=== PATIENT | female | born 1965 | race Caucasian/White ===

== ENCOUNTER 2017-06-21 11:19 | Inpatient (IN) | payer OTHER ==
--- NOTE | 2017-06-21 12:23 | PDOC ---
History of Present Illness - General Chief Complaint: Diarrhea Stated Complaint: DIARRHEA Time Seen by Provider: 06/21/17 11:33 History Source: Patient Exam Limitations: No Limitations - History of Present Illness Initial Comments: 06/21/17 12:23 52F with pmh of rectal cancer stage 4 s/p mass resection and ileostomy on IV and PO chemotherapy presents with diarrhea every 25 minutes for the past 2 days. Stools are normally formed, not liquid or bloody, and according to patient seem to correlate with food ingested suggestive of very fast transit. Admits to episodes of vomiting preceding the diarrhea. Past History - Past Medical History Allergies/Adverse Reactions: Allergies Allergy/AdvReac Type Severity Reaction Status Date / Time No Known Allergies Allergy Verified 06/21/17 11:23 Home Medications: Ambulatory Orders Capecitabine 1,000 mg PO BID 06/21/17 Gabapentin 100 mg PO TID 06/21/17 Ondansetron [Zofran -] 8 mg PO Q8H PRN 06/21/17 Ondansetron [Zofran -] 8 mg SL Q6H PRN 06/21/17 Prochlorperazine 10 mg PO Q6H PRN 06/21/17 Anemia: No Asthma: No Cancer: Yes (rectal 10/14/2016 stage 4) Cardiac Disorders: No CVA: No COPD: No CHF: No Dementia: No Diabetes: No GI Disorders: No Disorders: No HTN: No Hypercholesterolemia: Yes Liver Disease: No Seizures: No Thyroid Disease: No - Surgical History Abdominal Surgery: No Appendectomy: No Cardiac Surgery: No Cholecystectomy: No Lung Surgery: No Neurologic Surgery: No Orthopedic Surgery: Yes - Suicide/Smoking/Psychosocial Hx Smoking Status: Yes Smoking History: Never smoked Have you smoked in the past 12 months: Yes Number of Cigarettes Smoked Daily: 0 If you are a former smoker, when did you quit?: 2 years ago Information on smoking cessation initiated: No 'Breaking Loose' booklet given: 07/28/12 Hx Alcohol Use: No Drug/Substance Use Hx: No Substance Use Type: None Hx Substance Use Treatment: No *Physical Exam - Vital Signs Last Vital Signs Temp Pulse Resp BP Pulse Ox 98.4 F 92 H 18 130/82 99 06/21/17 11:20 06/21/17 11:20 06/21/17 11:20 06/21/17 11:20 06/21/17 11:20 - Physical Exam General Appearance: Yes: Nourished, Appropriately Dressed, Mild Distress HEENT: positive: EOMI, FREDY, Normal ENT Inspection Respiratory/Chest: positive: Lungs Clear, Normal Breath Sounds. negative: Chest Tender, Respiratory Distress Cardiovascular: positive: Regular Rhythm, Regular Rate, S1, S2 Gastrointestinal/Abdominal: positive: Normal Bowel Sounds, Flat, Soft. negative : Tender Musculoskeletal: positive: Normal Inspection. negative: CVA Tenderness Extremity: positive: Normal Capillary Refill, Normal Inspection, Normal Range of Motion Integumentary: positive: Normal Color, Dry, Warm Neurologic: positive: Fully Oriented, Alert, Normal Mood/Affect, Normal Response , Motor Strength 07/05 ED Treatment Course - LABORATORY CBC & Chemistry Diagram: 06/21/17 12:40 06/21/17 12:40 Medical Decision Making - Medical Decision Making 06/21/17 13:07 Grade 3 NCI CTCAE diarrhea grading: Increase of 7 or more stools/day over baseline. Will get labs and call Dr. Dempsey. *DC/Admit/Observation/Transfer Diagnosis at time of Disposition: Chemotherapy induced diarrhea - Discharge Dispostion Admit: Yes - Referrals Referrals: Yaniv Dempsey MD [Primary Care Provider] - - Patient Instructions - Post Discharge Activity
--- NOTE | 2017-06-21 12:25 | PDOC ---
Attending Attestation - Resident Resident Name: AnnCr - ED Attending Attestation I have performed the following: I have examined & evaluated the patient, The case was reviewed & discussed with the resident, I agree w/resident's findings & plan, Exceptions are as noted - HPI HPI: 06/21/17 12:24 "The patient is a 52 year old female with a significant PMH of stage IV rectal CA (on radiation and chemo) and hyperlipidemia who presents to the emergency department with 2 days of acute on chronic diarrhea and 1 day of vomiting. The patient reports 2 days of diarrhea approximately every 25 minutes, stating she had about 25 episodes yesterday and today. She reports she has about 8 BMs a day at baseline. She describes her stool as brown and non-watery. The patient denies hematochezia. Denies abdominal pain. Denies F/C. Denies CP/SOB. Allergies: NKA PCP: Dr. Dempsey " - Physicial Exam PE: 06/21/17 12:25 "GENERAL: Awake, alert, and fully oriented, in no acute distress. HEAD: No signs of trauma EYES: PERRLA, EOMI, sclera anicteric, conjunctiva clear ENT: Auricles normal inspection, hearing grossly normal, nares patent, oropharynx clear without exudates. Moist mucosa NECK: Nontender, no stepoffs, Normal ROM, supple, no lymphadenopathy, JVD, or masses LUNGS: Breath sounds equal, clear to auscultation bilaterally. No wheezes, and no crackles HEART: Regular rate and rhythm, normal S1 and S2, no murmurs, rubs or gallops ABDOMEN: Soft, nontender, normoactive bowel sounds. No guarding, no rebound. No masses EXTREMITIES: Normal range of motion, no edema. No clubbing or cyanosis. No cords , erythema, or tenderness NEUROLOGICAL: Cranial nerves II through XII intact. 5/5 strength and sensation in all extremities, Normal speech, normal gait, normal cerebellar function SKIN: Warm, Dry, normal turgor, no rashes or lesions noted. " - Medical Decision Making 06/21/17 12:25 52 F with likely chemotherapy-related diarrhea. Pt with no fevers. No abdominal tenderness. - Labs - Stool cultures - IVF - Likely admission
[2017-06-21 12:51] LABS: BASO % 0.4 % (0-2.0); EOS % 1.8 % (0-4.5); HEMOGLOBIN 10.1 GM/dL (10.7-15.3); MCH 24.8 pg (25.7-33.7); MCHC 32.6 g/dl (32.0-36.0); MEAN CELL VOLUME 76.1 fl (80-96); MEAN PLT VOLUME 7.7 fl (7.5-11.1); MONO % 15.3 % (3.8-10.2); NEUT % 57.5 % (42.8-82.8); PLATELET COUNT 79 K/MM3 (134-434); RBC 4.08 M/mm3 (3.60-5.2); RDW 16.5 % (11.6-15.6); WHITE BLOOD COUNT 3.4 K/mm3 (4.0-10.0)
[2017-06-21 13:19] LABS: ALBUMIN 3.3 g/dl (3.4-5.0); ANION GAP 8 (8-16); BILIRUBIN,TOTAL 0.3 mg/dL (0.2-1.0); BLOOD UREA NITROGEN 8 mg/dL (7-18); CALCIUM 8.6 mg/dL (8.5-10.1); CHLORIDE 109 mmol/L (98-107); CO2 27 mmol/L (21-32); CREATININE 0.4 mg/dL (0.55-1.02); GLUCOSE,RANDOM 110 mg/dL (74-106); POTASSIUM 3.8 mmol/L (3.5-5.1); SGOT/AST 40 U/L (15-37); SGPT/ALT 47 U/L (12-78); SODIUM 144 mmol/L (136-145); TOT PROT 6.3 g/dl (6.4-8.2)
[2017-06-21 13:20] LABS: ALK PHOS 98 U/L (45-117)
[2017-06-21] MEDS ORDERED: SODIUM CHLORIDE 1,000 ML IV STA (14:06)
[2017-06-21] MEDS ORDERED: ONDANSETRON 4 MG/2 ML VIAL IVPB PRN (14:07)
[2017-06-21] MEDS ORDERED: FAMOTIDINE 20 MG/50 ML IVPB 20 MG/50 ML MG IVPB ONE ×2 (14:15→14:22)
--- NOTE | 2017-06-21 17:37 | HP ---
Admitting History and Physical - Primary Care Physician PCP: Yaniv Dempsey - Admission Chief Complaint: FREQUENT STOOLS/WEAKNESS History of Present Illness: HISTORY OF RECTAL COLION CANCER, S/P RADIATION/CHEMOTHERAPY WITH SURGICAL REMOVAL.NOW ON PO CHEMOTHERAPY C/O FREQUENT STOOLS OVER THE PAST 2 DAYS NON- BLOODY. NO FEVER NO CHILLS, BUT C/O WEAKNESS. History Source: Patient - Past Medical History ...LMP: 06/07/11 Heme/Onc: Yes: Cancer - Smoking History Smoking history: Never smoked Have you smoked in the past 12 months: Yes Aproximately how many cigarettes per day: 0 If you are a former smoker, when did you quit?: 2 years ago - Alcohol/Substance Use Hx Alcohol Use: No Home Medications - Allergies Allergies/Adverse Reactions: Allergies Allergy/AdvReac Type Severity Reaction Status Date / Time No Known Allergies Allergy Verified 06/21/17 11:23 - Home Medications Home Medications: Ambulatory Orders Capecitabine 1,000 mg PO BID 06/21/17 Gabapentin 100 mg PO TID 06/21/17 Ondansetron [Zofran -] 8 mg PO Q8H PRN 06/21/17 Ondansetron [Zofran -] 8 mg SL Q6H PRN 06/21/17 Prochlorperazine 10 mg PO Q6H PRN 06/21/17 Review of Systems - Review of Systems Constitutional: reports: Weakness Eyes: reports: No Symptoms HENT: reports: No Symptoms Neck: reports: No Symptoms Cardiovascular: reports: No Symptoms Respiratory: reports: No Symptoms Gastrointestinal: reports: Diarrhea Genitourinary: reports: No Symptoms Musculoskeletal: reports: No Symptoms Integumentary: reports: No Symptoms Neurological: reports: No Symptoms Endocrine: reports: No Symptoms Hematology/Lymphatic: reports: No Symptoms Psychiatric: reports: No Symptoms Physical Examination Vital Signs: Vital Signs Temperature 98.4 F 06/21/17 11:20 Pulse Rate 88 06/21/17 15:39 Respiratory Rate 18 06/21/17 15:39 Blood Pressure 138/82 06/21/17 15:39 O2 Sat by Pulse Oximetry (%) 100 06/21/17 15:39 Constitutional: Yes: Mild Distress Eyes: Yes: WNL HENT: Yes: WNL Neck: Yes: WNL Cardiovascular: Yes: WNL Respiratory: Yes: WNL Gastrointestinal: Yes: WNL Renal/: Yes: WNL Musculoskeletal: Yes: WNL Extremities: Yes: WNL Edema: No Peripheral Pulses WNL: Yes Integumentary: Yes: WNL Wound/Incision: Yes: Clean/Dry Neurological: Yes: WNL ...Motor Strength: WNL Psychiatric: Yes: WNL Labs: CBC, BMP 06/21/17 12:40 06/21/17 12:40 Problem List - Problems (1) Rectal adenocarcinoma Code(s): C20 - MALIGNANT NEOPLASM OF RECTUM (2) Chemotherapy induced diarrhea Code(s): K52.1 - TOXIC GASTROENTERITIS AND COLITIS; T45.1X5A - ADVERSE EFFECT OF ANTINEOPLASTIC AND IMMUNOSUP DRUGS, INIT Assessment/Plan CHECK STOOLS FOR CULTURES AND CDIFF ID CONSULT GI EVAL IVF ONCOLOGY EVAL
[2017-06-21 18:47] VITALS: BMI 30.2
[2017-06-21] MEDS ORDERED: ACETAMINOPHEN 325 MG TABLET (FP) PO PRN (21:03)
[2017-06-21] MEDS ORDERED: SODIUM CHLORIDE 1,000 ML IV SCH (21:15)
[2017-06-21] MEDS: SODIUM CHLORIDE 0.45% 1,000 ML IV SCH (22:01)
--- NOTE | 2017-06-21 22:23 | EKG ---
Test Reason : Blood Pressure : / mmHG Vent. Rate : 082 BPM Atrial Rate : 082 BPM P-R Int : 156 ms QRS Dur : 078 ms QT Int : 388 ms P-R-T Axes : 020 008 015 degrees QTc Int : 453 ms NORMAL SINUS RHYTHM NORMAL ECG WHEN COMPARED WITH ECG OF 03-JUN-2014 12:43, NO SIGNIFICANT CHANGE WAS FOUND Confirmed by DAYNE JADE MD ([id number]) on 06/21/2017 10:22:30 PM Referred By: Confirmed By:DAYNE JADE MD
[2017-06-22 07:28] LABS: HEMATOCRIT 30.3 % (32.4-45.2); MCH 25.1 pg (25.7-33.7); MCHC 32.8 g/dl (32.0-36.0); MEAN CELL VOLUME 76.4 fl (80-96); MEAN PLT VOLUME 8.3 fl (7.5-11.1); PLATELET COUNT 73 K/MM3 (134-434); RBC 3.97 M/mm3 (3.60-5.2); RDW 16.8 % (11.6-15.6); WHITE BLOOD COUNT 2.7 K/mm3 (4.0-10.0)
[2017-06-22 07:57] LABS: ALBUMIN 3.2 g/dl (3.4-5.0); ANION GAP 8 (8-16); BILIRUBIN,TOTAL 0.3 mg/dL (0.2-1.0); BLOOD UREA NITROGEN 5 mg/dL (7-18); CALCIUM 8.7 mg/dL (8.5-10.1); CHLORIDE 107 mmol/L (98-107); CO2 27 mmol/L (21-32); CREATININE 0.4 mg/dL (0.55-1.02); GLUCOSE,RANDOM 90 mg/dL (74-106); MAGNESIUM 2.1 mg/dL (1.8-2.4); SGOT/AST 38 U/L (15-37); SGPT/ALT 41 U/L (12-78); SODIUM 142 mmol/L (136-145)
[2017-06-22 07:58] LABS: ALK PHOS 98 U/L (45-117); TOT PROT 6.2 g/dl (6.4-8.2)
[2017-06-22 08:53] LABS: PLATELET ESTIMATE DECREASED; TEAR DROP CELLS 1+
[2017-06-22] MEDS: AMINO ACIDS/PROTEIN HYDROLYS 30 ML LIQUID.PKT PO SCH ×3 (10:03→17:53)
--- NOTE | 2017-06-22 12:19 | PN ---
Progress Note, Physician Chief Complaint: POOR APPETITE WEAK NAUSEA - Current Medication List Current Medications: Active Medications Acetaminophen (Tylenol -) 650 mg PO Q6H PRN PRN Reason: PAIN LEVEL 6-10 Last Admin: 06/21/17 21:15 Dose: 650 mg Amino Acids (Prosource No Carb Liquid Pkt) 30 ml PO BID@0800,1730 [facility] Last Admin: 06/22/17 10:04 Dose: Not Given Sodium Chloride (1/2 Normal Saline) 1,000 mls @ 42 mls/hr IV ASDIR [facility] Last Admin: 06/21/17 22:01 Dose: 42 mls/hr Ondansetron HCl (Zofran Injection) 8 mg IVPB Q6H PRN PRN Reason: NAUSEA - Objective Vital Signs: Vital Signs Temperature 98.0 F 06/22/17 05:43 Pulse Rate 80 06/22/17 05:43 Respiratory Rate 20 06/22/17 05:43 Blood Pressure 124/75 06/22/17 05:43 O2 Sat by Pulse Oximetry (%) 98 06/21/17 23:00 Constitutional: Yes: Mild Distress Eyes: Yes: WNL HENT: Yes: WNL Neck: Yes: WNL Cardiovascular: Yes: WNL Respiratory: Yes: WNL Gastrointestinal: Yes: Other Genitourinary: Yes: WNL Musculoskeletal: Yes: Muscle Weakness Extremities: Yes: WNL Edema: No Peripheral Pulses WNL: Yes Integumentary: Yes: WNL Wound/Incision: Yes: Clean/Dry Neurological: Yes: Tingling ...Motor Strength: WNL Psychiatric: Yes: WNL Labs: CBC, BMP 06/22/17 06:44 06/22/17 06:44 Problem List - Problems (1) Rectal adenocarcinoma Code(s): C20 - MALIGNANT NEOPLASM OF RECTUM (2) Chemotherapy induced diarrhea Code(s): K52.1 - TOXIC GASTROENTERITIS AND COLITIS; T45.1X5A - ADVERSE EFFECT OF ANTINEOPLASTIC AND IMMUNOSUP DRUGS, INIT Assessment/Plan CHECK STOOLS FOR CULTURES AND CDIFF ID CONSULT GI EVAL IVF ONCOLOGY EVAL
[2017-06-22] MEDS ORDERED: diazePAM 2 MG TABLET PO PRN (12:24)
[2017-06-22] MEDS ORDERED: LACTOBACILLUS ACIDOPHILUS 1 TABLET PO SCH (12:30)
--- NOTE | 2017-06-22 14:26 | CONSULT ---
Consult - text type - Consultation Consultation Note: 52F with pmh of rectal cancer diagnosed 10/2013 s/p chemo/RT , resection and ileostomy 02/16 and reversal of ileostomy 6 weks later, On XELOX C2 D10 presents with diarrhea every 25 minutes for the past 2 days. Frequent BMs. nl consistency. Baseline BMs after surgery 10 times/day but cramping abdominal pain and frequent BMS over last few days Increased BMs after eating Also with nausea Allergies/Adverse Reactions: Allergies Allergy/AdvReac Type Severity Reaction Status Date / Time No Known Allergies Allergy Verified 06/21/17 11:23 Home Medications: Ambulatory Orders Capecitabine 1,000 mg PO BID 06/21/17 Gabapentin 100 mg PO TID 06/21/17 Ondansetron [Zofran -] 8 mg PO Q8H PRN 06/21/17 Ondansetron [Zofran -] 8 mg SL Q6H PRN 06/21/17 Prochlorperazine 10 mg PO Q6H PRN 06/21/17 PMH Cancer: Yes (rectal 10/14/2016 stage 4) Hypercholesterolemia: Yes - Surgical History Orthopedic Surgery: Yes - Suicide/Smoking/Psychosocial Hx Smoking Status: Yes Smoking History: Never smoked - Vital Signs Last Vital Signs Temp Pulse Resp BP Pulse Ox 98.4 F 92 H 18 130/82 99 06/21/17 11:20 06/21/17 11:20 06/21/17 11:20 06/21/17 11:20 06/21/17 11:20 Cor: RSR, No murmurs, No gallops Lungs: Clear to P&A Abd: Soft, Normal bowel sounds, No organomegaly Ext:No significant edema Abnormal Lab Results 06/21/17 06/22/17 06/22/17 12:40 06:44 06:44 WBC 2.7 L Hgb 10.0 L Hct 30.3 L MCV 76.4 L MCH 25.1 L RDW 16.8 H Plt Count 73 L Chloride 109 H BUN 5 L Creatinine 0.4 L 0.4 L Random Glucose 110 H AST 40 H 38 H Total Protein 6.3 L 6.2 L Albumin 3.3 L 3.2 L Home Medication List Medication Instructions Recorded Confirmed Type Capecitabine 1,000 mg PO BID 06/21/17 06/21/17 History Gabapentin 100 mg PO TID 06/21/17 06/21/17 History Ondansetron [Zofran -] 8 mg PO Q8H PRN 06/21/17 06/21/17 History Ondansetron [Zofran -] 8 mg SL Q6H PRN 06/21/17 06/21/17 History Prochlorperazine 10 mg PO Q6H PRN 06/21/17 06/21/17 History Active Medications Generic Name Dose Route Start Last Admin Trade Name Jeanne PRN Reason Stop Dose Admin Acetaminophen 650 mg 06/21/17 21:03 06/21/17 21:15 Tylenol - PO 650 mg Q6H PRN Administration PAIN LEVEL 6-10 Amino Acids 30 ml 06/21/17 17:30 06/22/17 10:04 Prosource No Carb Liquid Pkt PO Not Given BID@0800,1730 ANU Camphor/Menthol 1 applic 06/22/17 12:30 Sarna Anti-Itch - TP DAILY ANU Diazepam 2 mg 06/22/17 12:24 Valium - PO HS PRN ANXIETY Sodium Chloride 1,000 mls @ 42 mls/hr 06/21/17 21:30 06/21/17 22:01 1/2 Normal Saline IV 42 mls/hr ASDIR ANU Administration Ondansetron HCl 8 mg 06/22/17 14:30 Zofran Injection IVPB Q12H PRN NAUSEA A/P 52 y/o patient C2 D10 XELOX for rectal cancer. Being treated at [facility] h/o chemo/RT and then surgery followed by ileostomy reversal Getting adjuvant XELOX Patient comes in for increased frequency of BMS from baseline --reports small BMS upto 15-20 /day. Basline around 10 since surgery C.diff neg. will start immodium/BRAT diet/fluids Zofran fo nausea Hold Xeloda
[2017-06-22] MEDS ORDERED: ONDANSETRON 4 MG/2 ML VIAL IVPB PRN (14:30)
[2017-06-22] MEDS ORDERED: PORTA CATH FLUSH 10 ML IVPUSH ONE (15:43)
[2017-06-22] MEDS ORDERED: LOPERAMIDE HCL 2 MG CAPSULE PO PRN (15:50)
--- NOTE | 2017-06-22 18:06 | PN ---
Progress Note (short form) - Note Progress Note: ID Consult dictated Diarrhea R/O enteric pathogens ? chemo-induced Pancytopenia Hx colorectal ca Await stool studies
[2017-06-22] MEDS: SODIUM CHLORIDE 0.45% 1,000 ML IV SCH (22:56)
[2017-06-23 07:29] LABS: HEMATOCRIT 30.3 % (32.4-45.2); HEMOGLOBIN 9.9 GM/dL (10.7-15.3); MCH 24.8 pg (25.7-33.7); MCHC 32.7 g/dl (32.0-36.0); MEAN CELL VOLUME 75.9 fl (80-96); MEAN PLT VOLUME 8.8 fl (7.5-11.1); PLATELET COUNT 78 K/MM3 (134-434); RDW 16.9 % (11.6-15.6); WHITE BLOOD COUNT 3.3 K/mm3 (4.0-10.0)
[2017-06-23 07:48] LABS: ANION GAP 6 (8-16); BLOOD UREA NITROGEN 10 mg/dL (7-18); CALCIUM 8.4 mg/dL (8.5-10.1); CHLORIDE 107 mmol/L (98-107); CO2 28 mmol/L (21-32); CREATININE 0.4 mg/dL (0.55-1.02); GLUCOSE,RANDOM 87 mg/dL (74-106); POTASSIUM 3.8 mmol/L (3.5-5.1); SODIUM 141 mmol/L (136-145)
[2017-06-23 07:49] LABS: PHOSPHOROUS 4.1 mg/dL (2.5-4.9)
[2017-06-23] MEDS: AMINO ACIDS/PROTEIN HYDROLYS 30 ML LIQUID.PKT PO SCH ×2 (08:26→17:43)
--- NOTE | 2017-06-23 09:12 | CONS ---
INFECTIOUS DISEASE CONSULTATION DATE OF CONSULTATION: DATE OF DICTATION: 06/23/2017 The patient is a 52-year-old female with a history of stage IV colorectal cancer, status post resection with ileostomy and reversal, status post chemotherapy and radiation therapy, evaluated for diarrhea. The patient reports receiving both oral and IV chemotherapy. Her last dose of IV chemotherapy was approximately 10 days ago. For the past 2 days, she has had profuse diarrhea. She reports having 8 to 10 bowel movements a day. She normally has loose bowel movements. However, it has gotten markedly worse over the last 2 days. She has been unable to eat, as she develops profuse diarrhea after ingesting any food. She denies any rectal bleeding. No associated fever or chills. She does have associated crampy abdominal pain. The patient lives at home. She denies any ill contacts. She has not eaten food from outside the house. She has had no recent consumption of krunal lettuce (recent E coli outbreak). No recent travel, antibiotic therapy, or vomiting. PAST MEDICAL HISTORY: Positive for stage IV colorectal cancer. She is status post ileostomy with reversal in January 2017. Past medical history also includes hyperlipidemia. ALLERGIES: No known allergies. MEDICATIONS: Gabapentin, Zofran, Xelox. SOCIAL HISTORY: Lives at home with family members. Nonsmoker. Nondrinker. LABORATORY DATA: White count 2.7, neutrophils 62, lymphocytes 30, monocytes 4, hematocrit 30.3, platelet count 73. BUN 5, creatinine 0.4. Blood cultures negative. Stool studies negative. PHYSICAL EXAMINATION: General: She is awake and alert. She is not acutely toxic appearing, weak appearing. Vital signs: Temperature 97.8, blood pressure 105/70, pulse 85 and regular, respirations 20 per minute. Eyes: Sclerae are anicteric. Heart: Heart sounds S1, S2. Lungs: Clear. Abdomen: Soft. No tenderness elicited. No mass, rebound or rigidity. Healed surgical scar right lower abdomen. Extremities: Negative for edema. IMPRESSION: 1. Diarrhea. Rule out enteric pathogens versus chemotherapy-induced diarrhea. 2. Dehydration. 3. Pancytopenia. 4. Stage IV colorectal cancer. Continue IV fluid hydration. Await stool studies. Will observe off antibiotic therapy. Case discussed with family members present at the time of the examination. Thank you for the kind referral. STEPHANIE MALDONADO M.D. EDUARD/[id number]
--- NOTE | 2017-06-23 13:46 | PN ---
Progress Note, Physician History of Present Illness: Awake, alert Feeling better 3 loose, non-bloody stools reported No c/o abdominal pain No fever/ chills - Current Medication List Current Medications: Active Medications Acetaminophen (Tylenol -) 650 mg PO Q6H PRN PRN Reason: PAIN LEVEL 6-10 Last Admin: 06/21/17 21:15 Dose: 650 mg Amino Acids (Prosource No Carb Liquid Pkt) 30 ml PO BID@0800,1730 [facility] Last Admin: 06/23/17 08:26 Dose: 30 ml Camphor/Menthol (Sarna Anti-Itch -) 1 applic TP DAILY [facility] Diazepam (Valium -) 2 mg PO HS PRN PRN Reason: ANXIETY Last Admin: 06/22/17 22:57 Dose: 2 mg Sodium Chloride (1/2 Normal Saline) 1,000 mls @ 42 mls/hr IV ASDIR ANU Last Admin: 06/22/17 22:56 Dose: 42 mls/hr Loperamide HCl (Imodium -) 2 mg PO Q6H PRN PRN Reason: DIARRHEA Last Admin: 06/22/17 17:52 Dose: 2 mg Ondansetron HCl (Zofran Injection) 8 mg IVPB Q12H PRN PRN Reason: NAUSEA - Objective Vital Signs: Vital Signs Temperature 97.9 F 06/23/17 13:24 Pulse Rate 83 06/23/17 13:24 Respiratory Rate 18 06/23/17 13:24 Blood Pressure 123/71 06/23/17 13:24 O2 Sat by Pulse Oximetry (%) 96 06/22/17 21:00 Constitutional: Yes: No Distress Eyes: Yes: Conjunctiva Clear Cardiovascular: Yes: Regular Rate and Rhythm, S1, S2 Respiratory: Yes: CTA Bilaterally Gastrointestinal: Yes: Normal Bowel Sounds, Soft. No: Tenderness Labs: CBC, BMP 06/23/17 06:40 06/23/17 06:40 Assessment/Plan Diarrhea ? chemo-induced R/O enteric pathogens Pancytopenia Stage IV colorectal ca Await stool studies Observe off antibiotics
[2017-06-23] MEDS: MENTHOL/CAMPHOR 1 APPLIC BTL TP SCH (17:42)
--- NOTE | 2017-06-23 17:46 | CON.GI ---
Consult Consult Specialty:: GI Referred by:: Dr Dempsey - History of Present Illness History of Present Illness: 52 y/o F with metastatic rectal cancer was admitted because of severe diarrhea associated with weakness and myalgia. Today feels better. Diarrhea improved. - Past Medical History ...LMP: 06/07/11 ...: No - Alcohol/Substance Use Hx Alcohol Use: No - Smoking History Smoking history: Never smoked Have you smoked in the past 12 months: Yes Aproximately how many cigarettes per day: 0 If you are a former smoker, when did you quit?: 2 years ago Home Medications - Allergies Allergies/Adverse Reactions: Allergies Allergy/AdvReac Type Severity Reaction Status Date / Time No Known Allergies Allergy Verified 06/21/17 11:23 - Home Medications Home Medications: Ambulatory Orders Capecitabine 1,000 mg PO BID 06/21/17 Gabapentin 100 mg PO TID 06/21/17 Ondansetron [Zofran -] 8 mg PO Q8H PRN 06/21/17 Ondansetron [Zofran -] 8 mg SL Q6H PRN 06/21/17 Prochlorperazine 10 mg PO Q6H PRN 06/21/17 Physical Exam-GI Vital Signs: Vital Signs Temperature 97.9 F 06/23/17 13:24 Pulse Rate 83 06/23/17 13:24 Respiratory Rate 18 06/23/17 13:24 Blood Pressure 123/71 06/23/17 13:24 O2 Sat by Pulse Oximetry (%) 97 06/23/17 09:00 Constitutional: Yes: Well Nourished Eyes: Yes: Conjunctiva Clear HENT: Yes: Atraumatic Neck: Yes: Supple Cardiovascular: Yes: Regular Rate and Rhythm Respiratory: Yes: CTA Bilaterally ...Palpate: Yes: Soft. No: Firm/Rigid, Guarding, Hepatomegaly, Mass, Pulsatile Mass, Splenomegaly, Tenderness Labs: CBC, BMP 06/23/17 06:40 06/23/17 06:40 Problem List - Problems (1) Diarrhea Assessment/Plan: stool studies R> low fiber lactose free will start on Megestrol, Folic acid and Vit b complex for poor appetite Code(s): R19.7 - DIARRHEA, UNSPECIFIED
--- NOTE | 2017-06-23 18:16 | PN ---
Progress Note, Physician Chief Complaint: Diarrhea, nausea, vomiting Stage 4 rectal Ca History of Present Illness: feeling much better NAD, in bed Appetite improved Seen by ID, Oncology and GI Stool negative for Cdiff-culture and O&P preliminary negative Xeloda on hold, Sees Dr Nely Louis at [facility] at Self ambulatory Symptoms likely 2/2 to chemo - Current Medication List Current Medications: Active Medications Acetaminophen (Tylenol -) 650 mg PO Q6H PRN PRN Reason: PAIN LEVEL 6-10 Last Admin: 06/21/17 21:15 Dose: 650 mg Amino Acids (Prosource No Carb Liquid Pkt) 30 ml PO BID@0800,1730 [facility] Last Admin: 06/23/17 17:43 Dose: 30 ml Camphor/Menthol (Sarna Anti-Itch -) 1 applic TP DAILY [facility] Last Admin: 06/23/17 17:42 Dose: Not Given Diazepam (Valium -) 2 mg PO HS PRN PRN Reason: ANXIETY Last Admin: 06/22/17 22:57 Dose: 2 mg Sodium Chloride (1/2 Normal Saline) 1,000 mls @ 42 mls/hr IV ASDIR ANU Last Admin: 06/22/17 22:56 Dose: 42 mls/hr Loperamide HCl (Imodium -) 2 mg PO Q6H PRN PRN Reason: DIARRHEA Last Admin: 06/22/17 17:52 Dose: 2 mg Ondansetron HCl (Zofran Injection) 8 mg IVPB Q12H PRN PRN Reason: NAUSEA - Objective Vital Signs: Vital Signs Temperature 97.9 F 06/23/17 13:24 Pulse Rate 83 06/23/17 13:24 Respiratory Rate 18 06/23/17 13:24 Blood Pressure 123/71 06/23/17 13:24 O2 Sat by Pulse Oximetry (%) 97 06/23/17 09:00 Constitutional: Yes: Well Nourished, No Distress, Calm Cardiovascular: Yes: Regular Rate and Rhythm Respiratory: Yes: Regular Gastrointestinal: Yes: Normal Bowel Sounds, Soft Musculoskeletal: Yes: WNL Extremities: Yes: WNL Edema: No Peripheral Pulses WNL: Yes Neurological: Yes: Alert, Oriented Psychiatric: Yes: Alert, Oriented Labs: CBC, BMP 06/23/17 06:40 06/23/17 06:40 Problem List - Problems (1) Chemotherapy induced diarrhea Assessment/Plan: -Hold Xeloda -immodium -low fiber lactose free diet -D/C home in am -F/U with oncology outpatient Code(s): K52.1 - TOXIC GASTROENTERITIS AND COLITIS; T45.1X5A - ADVERSE EFFECT OF ANTINEOPLASTIC AND IMMUNOSUP DRUGS, INIT (2) Rectal adenocarcinoma Assessment/Plan: -hold Xeloda -F/U with Oncology outpatient Code(s): C20 - MALIGNANT NEOPLASM OF RECTUM (3) Hypoalbuminemia due to protein-calorie malnutrition Assessment/Plan: -Ensure -Encourage PO intake -megace? Code(s): E46 - UNSPECIFIED PROTEIN-CALORIE MALNUTRITION Assessment/Plan see problem list
[2017-06-23] MEDS: PANTOPRAZOLE 20 MG TABLET (FP) PO SCH (18:47)
--- NOTE | 2017-06-23 18:52 | PN ---
Progress Note (short form) - Note Progress Note: Patient seen and examined Feels better Last Vital Signs Temp Pulse Resp BP Pulse Ox 98.3 F 80 18 132/80 97 06/23/17 18:00 06/23/17 18:00 06/23/17 18:00 06/23/17 18:00 06/23/17 09:00 Cor: RSR, No murmurs, No gallops Lungs: Clear to P&A Abd: Soft, Normal bowel sounds, No organomegaly Ext:No significant edema Abnormal Lab Results 06/23/17 06/23/17 06:40 06:40 WBC 3.3 L Hgb 9.9 L Hct 30.3 L MCV 75.9 L MCH 24.8 L RDW 16.9 H Plt Count 78 L Anion Gap 6 L Creatinine 0.4 L Calcium 8.4 L Active Medications Generic Name Dose Route Start Last Admin Trade Name Freq PRN Reason Stop Dose Admin Acetaminophen 650 mg 06/21/17 21:03 06/21/17 21:15 Tylenol - PO 650 mg Q6H PRN Administration PAIN LEVEL 6-10 Amino Acids 30 ml 06/21/17 17:30 06/23/17 17:43 Prosource No Carb Liquid Pkt PO 30 ml BID@0800,1730 ANU Administration Camphor/Menthol 1 applic 06/22/17 12:30 06/23/17 17:42 Sarna Anti-Itch - TP Not Given DAILY ANU Diazepam 2 mg 06/22/17 12:24 06/22/17 22:57 Valium - PO 2 mg HS PRN Administration ANXIETY Heparin Sodium (Porcine) 5,000 unit 06/23/17 22:00 Heparin - SQ BID ANU Sodium Chloride 1,000 mls @ 42 mls/hr 06/21/17 21:30 06/22/17 22:56 1/2 Normal Saline IV 42 mls/hr ASDIR ANU Administration Loperamide HCl 2 mg 06/22/17 15:50 06/22/17 17:52 Imodium - PO 2 mg Q6H PRN Administration DIARRHEA Ondansetron HCl 8 mg 06/22/17 14:30 Zofran Injection IVPB Q12H PRN NAUSEA Pantoprazole Sodium 20 mg 06/23/17 18:30 06/23/17 18:47 Protonix - PO 20 mg DAILY ANU Administration A/P 52 y/o patient C2 D11 XELOX for rectal cancer. Being treated at [facility] h/o chemo/RT and then surgery followed by ileostomy reversal Getting adjuvant XELOX Patient comes in for increased frequency of BMS from baseline --reports small BMS upto 15-20 /day. Basline around 10 since surgery C.diff neg. will start immodium/BRAT diet/fluids Zofran for nausea Hold Xeloda
[2017-06-23] MEDS: SODIUM CHLORIDE 0.45% 1,000 ML IV SCH (21:01)
[2017-06-23] MEDS: HEPARIN NA (PORCINE) 5,000 UNITS/ML 1ML VIAL SQ SCH (21:15)
[2017-06-24 07:48] LABS: ALBUMIN 3.2 g/dl (3.4-5.0); ANION GAP 9 (8-16); BLOOD UREA NITROGEN 16 mg/dL (7-18); CHLORIDE 105 mmol/L (98-107); CO2 27 mmol/L (21-32); CREATININE 0.4 mg/dL (0.55-1.02); GLUCOSE,RANDOM 89 mg/dL (74-106); POTASSIUM 3.8 mmol/L (3.5-5.1); SGOT/AST 38 U/L (15-37); SGPT/ALT 39 U/L (12-78); SODIUM 141 mmol/L (136-145)
[2017-06-24 07:50] LABS: ALK PHOS 92 U/L (45-117); BILIRUBIN,TOTAL 0.2 mg/dL (0.2-1.0); TOT PROT 6.3 g/dl (6.4-8.2)
[2017-06-24 07:55] LABS: BASO % 0.7 % (0-2.0); EOS % 1.5 % (0-4.5); HEMATOCRIT 30.9 % (32.4-45.2); HEMOGLOBIN 10.2 GM/dL (10.7-15.3); LYMPH % 26.2 % (8-40); MCH 25.1 pg (25.7-33.7); MCHC 32.9 g/dl (32.0-36.0); MEAN CELL VOLUME 76.2 fl (80-96); MEAN PLT VOLUME 8.3 fl (7.5-11.1); MONO % 11.7 % (3.8-10.2); NEUT % 59.9 % (42.8-82.8); PLATELET COUNT 86 K/MM3 (134-434); RBC 4.05 M/mm3 (3.60-5.2); WHITE BLOOD COUNT 3.7 K/mm3 (4.0-10.0)
[2017-06-24] MEDS: AMINO ACIDS/PROTEIN HYDROLYS 30 ML LIQUID.PKT PO SCH (08:45)
[2017-06-24] MEDS: PANTOPRAZOLE 20 MG TABLET (FP) PO SCH (09:46)
[2017-06-24] MEDS: HEPARIN NA (PORCINE) 5,000 UNITS/ML 1ML VIAL SQ SCH (09:46)
[2017-06-24] MEDS: MENTHOL/CAMPHOR 1 APPLIC BTL TP SCH (09:46)
[2017-06-24 09:50] VITALS: BP 126/73; PULSE 86; TEMP 98.1
--- NOTE | 2017-06-24 11:04 | DS ---
Physical Examination Vital Signs: Vital Signs Temperature 98.1 F 06/24/17 09:50 Pulse Rate 86 06/24/17 09:50 Respiratory Rate 16 06/24/17 09:50 Blood Pressure 126/73 06/24/17 09:50 O2 Sat by Pulse Oximetry (%) 99 06/23/17 22:00 Constitutional: Yes: Well Nourished, No Distress, Calm Cardiovascular: Yes: Regular Rate and Rhythm Respiratory: Yes: Regular Gastrointestinal: Yes: Normal Bowel Sounds, Soft Musculoskeletal: Yes: WNL Extremities: Yes: WNL Edema: No Peripheral Pulses WNL: Yes Neurological: Yes: Alert, Oriented Psychiatric: Yes: Alert, Oriented Labs: CBC, BMP 06/24/17 06:00 06/24/17 06:00 Discharge Summary Reason For Visit: DIARRHEA Current Active Problems Chemotherapy induced diarrhea (Acute) Diarrhea (Acute) Hypoalbuminemia due to protein-calorie malnutrition (Acute) Rectal adenocarcinoma (Acute) Hospital Course: HISTORY OF RECTAL COLION CANCER, S/P RADIATION/CHEMOTHERAPY WITH SURGICAL REMOVAL.NOW ON PO CHEMOTHERAPY C/O FREQUENT STOOLS OVER THE PAST 2 DAYS NON- BLOODY. NO FEVER NO CHILLS, BUT C/O WEAKNESS. During her stay Xeloda was stopped, She received IVF, ensure and megace to increase and replenish. She will Follow up with her oncologist at [facility] outpatient. Condition: Stable - Instructions Referrals: Yaniv Dempsey MD [Primary Care Provider] - Disposition: HOME - Home Medications Comprehensive Discharge Medication List: Ambulatory Orders Capecitabine 1,000 mg PO BID 06/21/17 Gabapentin 100 mg PO TID 06/21/17 Ondansetron [Zofran -] 8 mg PO Q8H PRN 06/21/17 Ondansetron [Zofran -] 8 mg SL Q6H PRN 06/21/17 Prochlorperazine 10 mg PO Q6H PRN 06/21/17
== END 2017-06-24 13:34 | disposition home or self-care (01) | DRG 812 ==
LOC: JER 11:19 → JERBED 14:04 → J7W 17:31
PROVIDERS: ADMIT Family Medicine; ATTEND Family Medicine
DX: T45.1X5A Adverse effect of antineoplastic and immunosuppressive drugs, initial encounter (principal); K52.1 Toxic gastroenteritis and colitis; D61.810 Antineoplastic chemotherapy induced pancytopenia; E46 Unspecified protein-calorie malnutrition; E88.09 Other disorders of plasma-protein metabolism, not elsewhere classified; E78.5 Hyperlipidemia, unspecified; C20 Malignant neoplasm of rectum; Z92.21 Personal history of antineoplastic chemotherapy; Z92.3 Personal history of irradiation; E86.0 Dehydration
CPT/HCPCS: 36415; 71045-TC-FY; 80048; 80053; 83735; 84100; 84439; 84443; 85025; 85027; 87040; 87045; 87046; 87086; 87177; 87209; 87324; 87449; 93005; 93010; 99285-25; J1644; J7030

== ENCOUNTER 2017-09-17 23:12 | Emergency (ER) | payer OTHER ==
[2017-09-17 23:23] VITALS: BMI 31.1
--- NOTE | 2017-09-17 23:41 | PDOC ---
History of Present Illness - General Chief Complaint: Weakness Stated Complaint: NAUSEA/VOMITING Time Seen by Provider: 09/17/17 23:32 - History of Present Illness Initial Comments: 09/17/17 23:39 52 yo F with h/o stage 4 rectal adenocarcinoma s/p mass resection and ileostomy s/p chemotherapy who p/w lightheadedness, vomiting, and loose watery stools. Patient reports sitting outside with family 1 hour [employer] and developed sudden onset lightheadedness, with LOC x 3 seconds, while sitting. Denies head/neck trauma. Endorses nausea with one episode of bilious, non bloody emesis. Associated with 4 episodes of loose watery stools within 2 hours. Has h/o chronic diarrhea ( on Immodium every 3-4 days). Decreased appetite for past 6 months. + non pulsating, dull, Bifrontal TORRES, with absent neck stiffness, vision complaints. Last chemotherapy x 1 month ago. Now on oral chemotherapy regimen. Completed 4 cycles chemo. Patient denies F/C, CP, SOB, urinary complaints, abdominal pain, constipation, BPR, weakness, sensory changes. PMHx: as noted above ROS: as noted SHx: Tobacco cessation x 2 years ago. Allergies: NKDA PMD: Ke, Ammir Past History - Past Medical History Allergies/Adverse Reactions: Allergies Allergy/AdvReac Type Severity Reaction Status Date / Time No Known Allergies Allergy Verified 09/17/17 23:22 Home Medications: Ambulatory Orders Gabapentin 100 mg PO TID 06/21/17 Ondansetron [Zofran -] 8 mg PO Q8H PRN 06/21/17 Ondansetron [Zofran -] 8 mg SL Q6H PRN 06/21/17 Prochlorperazine 10 mg PO Q6H PRN 06/21/17 Acetaminophen [Tylenol .Regular Strength -] 650 mg PO Q6H PRN tablet 06/24/17 Amino Acids/Protein Hydrolys [Prosource No Carb Liquid Pkt] 30 ml PO BID@0800, 1730 packet 06/24/17 Diazepam [Valium] 2 mg PO HS PRN tablet MDD 1 06/24/17 Loperamide HCl [Imodium -] 2 mg PO Q6H PRN #20 capsule 06/24/17 Anemia: No Asthma: No Cancer: Yes (rectal 10/14/2016 stage 4) Cardiac Disorders: No CVA: No COPD: No CHF: No Dementia: No Diabetes: No GI Disorders: No Disorders: No HTN: No Hypercholesterolemia: Yes Liver Disease: No Seizures: No Thyroid Disease: No - Surgical History Abdominal Surgery: No Appendectomy: No Cardiac Surgery: No Cholecystectomy: No GI Surgery: Yes (ILEOSTOMY WITH REVERSAL.) Lung Surgery: No Neurologic Surgery: No Orthopedic Surgery: Yes - Suicide/Smoking/Psychosocial Hx Smoking Status: Yes Smoking History: Former smoker Have you smoked in the past 12 months: Yes Number of Cigarettes Smoked Daily: 0 If you are a former smoker, when did you quit?: 2 years ago Information on smoking cessation initiated: No 'Breaking Loose' booklet given: 07/28/12 Hx Alcohol Use: No Drug/Substance Use Hx: No Substance Use Type: None Hx Substance Use Treatment: No Review of Systems - Review of Systems Comments:: 09/17/17 23:40 GENERAL/CONSTITUTIONAL: No fever or chills. No weakness. HEAD, EYES, EARS, NOSE AND THROAT: No change in vision. No ear pain or discharge. No sore throat. CARDIOVASCULAR: No chest pain or shortness of breath RESPIRATORY: No cough, wheezing, or hemoptysis. GASTROINTESTINAL: +nausea, vomiting, and diarrhea. No constipation. GENITOURINARY: No dysuria, frequency, or change in urination. MUSCULOSKELETAL: No joint or muscle swelling or pain. No neck or back pain. SKIN: No rash NEUROLOGIC: + headache. No vertigo, loss of consciousness, or change in strength /sensation. ENDOCRINE: No increased thirst. No abnormal weight change HEMATOLOGIC/LYMPHATIC: No anemia, easy bleeding, or history of blood clots. ALLERGIC/IMMUNOLOGIC: No hives or skin allergy. *Physical Exam - Vital Signs Last Vital Signs Temp Pulse Resp BP Pulse Ox 97.6 F 110 H 18 138/85 100 09/17/17 23:19 09/17/17 23:19 09/17/17 23:19 09/17/17 23:19 09/17/17 23:19 - Physical Exam Comments: 09/17/17 23:40 GENERAL: Awake, alert, and fully oriented, in no acute distress HEAD: No signs of trauma, normocephalic, atraumatic EYES: PERRLA, EOMI, sclera anicteric, conjunctiva clear ENT:+ Dry mucous membranes. Hearing grossly normal, nares patent, oropharynx clear without exudates. NECK: Normal ROM, supple, no lymphadenopathy, JVD, or masses LUNGS: No distress, speaks full sentences, clear to auscultation bilaterally HEART: Regular rate and rhythm, normal S1 and S2, no murmurs, rubs or gallops, peripheral pulses normal and equal bilaterally. ABDOMEN: Soft, nontender, normoactive bowel sounds. No guarding, no rebound. No masses EXTREMITIES : Normal inspection, Normal range of motion, no edema. No clubbing or cyanosis. SKIN: Warm, Dry, normal turgor, no rashes or lesions noted ED Treatment Course - LABORATORY CBC & Chemistry Diagram: 09/18/17 00:23 09/18/17 01:00 Medical Decision Making - Medical Decision Making 09/18/17 00:11 52 yo F with h/o stage 4 rectal adenocarcinoma s/p mass resection and ileostomy s/p chemotherapy who p/w lightheadedness, vomiting, and loose watery stools. HR 110, vitals otherwise wnl, AF. Will evaluate for hypoglycemia, dehydration, electrolyte abnml, mnetabolic derangements, and acid base or toxic disturbances. Will also assess for possible opportunistic infections, neutropneia, typhlitis, in setting of chemotherapy, and recent malignancy. Daily BM and normal flatulence. Possible SBO. Ed Course: CBC,CMP, Cardiac Pr. EKG, CTH, Flat&Upright RAD NS, Zofran 09/18/17 00:43 EKG: Sinus tachycardia, with normal interval duration and axis. Absent ALEX, STD , TWI. 09/18/17 02:45 CBC, CMP: Unremarkable Lipase: 695 UA: Neg 09/18/17 04:18 CTH Neg 09/18/17 06:39 Patient stable for d/c with return precautions. Advised to f/u with PMD. Symptoms improved. *DC/Admit/Observation/Transfer Diagnosis at time of Disposition: Diarrhea Qualifiers: Diarrhea type: unspecified type Qualified Code(s): R19.7 - Diarrhea, unspecified Syncope Qualifiers: Encounter type: initial encounter - Discharge Dispostion Disposition: HOME Condition at time of disposition: Stable Decision to Admit order: No - Referrals Referrals: Yaniv Dempsey MD [Primary Care Provider] - - Patient Instructions Printed Discharge Instructions: DI for Syncope in Adults (Fainting) Additional Instructions: Patient evaluated and treated at [facility] Emergency Department on. He/ She is safe and advised to return to work on the specified date with no restrictions. - Post Discharge Activity - Attestations Physician Attestion: 09/18/17 06:39 I attest to the information provided in this note.
[2017-09-18] MEDS ORDERED: SODIUM CHLORIDE 1,000 ML IV STA
[2017-09-18] MEDS ORDERED: ONDANSETRON 4 MG/2 ML VIAL IVPUSH ONE (00:08)
[2017-09-18] MEDS ORDERED: ONDANSETRON 4 MG/2 ML VIAL ONE (00:28)
[2017-09-18 00:33] LABS: BASO % 0.5 % (0-2.0); EOS % 0.4 % (0-4.5); HEMATOCRIT 35.2 % (32.4-45.2); HEMOGLOBIN 11.9 GM/dL (10.7-15.3); LYMPH % 13.9 % (8-40); MCH 26.7 pg (25.7-33.7); MEAN CELL VOLUME 78.6 fl (80-96); MEAN PLT VOLUME 8.2 fl (7.5-11.1); MONO % 6.2 % (3.8-10.2); PLATELET COUNT 263 K/MM3 (134-434); RBC 4.47 M/mm3 (3.60-5.2); RDW 16.7 % (11.6-15.6); WHITE BLOOD COUNT 5.7 K/mm3 (4.0-10.0)
--- NOTE | 2017-09-18 01:10 | PDOC ---
Attending Attestation - Resident Resident Name: ChapitoAguilaDeandre - ED Attending Attestation I have performed the following: I have examined & evaluated the patient, The case was reviewed & discussed with the resident, I agree w/resident's findings & plan, Exceptions are as noted - HPI HPI: 09/18/17 01:05 "The patient is a 52 year old female, with a significant past medical history of stage 4 rectal adenocarcinoma s/p mass resection and ileostomy on oral chemotherapy (last tx 1 month ago), who presents to the ED complaining of syncope, nausea, vomiting and diarrhea. She notes her symptoms started today as she was sitting outside with her family. She states that she noticed her head begin to hurt and subsequently lost consciousness. Pt states that she gets headaches on a regular basis and does not note anything different about this one. Family notes that she was unresponsive for a few seconds and vomited once. Pt denies abdominal pain or nausea currently. Patient does have chronic diarrhea since her bowel resection. Denies any changes in that. She notes that her appetite has been decreased over the last few months. The patient denies chest pain, shortness of breath, headache, fever, chills, or constipation. Denies dysuria, frequency, urgency and hematuria. Allergies: None Past surgical history: ILEOSTOMY WITH REVERSAL. Social History: No alcohol, tobacco or drug use reported - Physicial Exam PE: 09/18/17 01:06 "GENERAL: Awake, alert, and fully oriented, in no acute distress. HEAD: No signs of trauma EYES: PERRLA, EOMI, sclera anicteric, conjunctiva clear ENT: Auricles normal inspection, hearing grossly normal, nares patent, oropharynx clear without exudates. Moist mucosa NECK: Nontender, no stepoffs, Normal ROM, supple, no lymphadenopathy, JVD, or masses LUNGS: Breath sounds equal, clear to auscultation bilaterally. No wheezes, and no crackles HEART: Regular rate and rhythm, normal S1 and S2, no murmurs, rubs or gallops ABDOMEN: Soft, nontender, normoactive bowel sounds. No guarding, no rebound. No masses EXTREMITIES: Normal range of motion, no edema. No clubbing or cyanosis. No cords, erythema, or tenderness NEUROLOGICAL: Cranial nerves II through XII intact. 5/5 strength and sensation in all extremities, Normal speech, normal gait, normal cerebellar function SKIN: Warm, Dry, normal turgor, no rashes or lesions noted. - Medical Decision Making 09/18/17 01:06 52 F with syncope, headache, and vomiting. Pt now with no headache or vomiting. Headache was reportedly consistent with her usual headaches, making SAH less likely. Nonetheless, given syncope, will obtain head CT. Pt also tachycardic in ED, concerning for possible dehydration. Pt with no signs of focal infectious process on exam. EKG with sinus tach, no signs of ischemia. - Labs - CT head - IVF, zofran - reassess
[2017-09-18 01:22] LABS: ALBUMIN 3.9 g/dl (3.4-5.0); ANION GAP 7 (8-16); BLOOD UREA NITROGEN 18 mg/dL (7-18); CALCIUM 9.4 mg/dL (8.5-10.1); CHLORIDE 104 mmol/L (98-107); CO2 27 mmol/L (21-32); GLUCOSE,RANDOM 125 mg/dL (74-106); POTASSIUM 4.1 mmol/L (3.5-5.1); SODIUM 138 mmol/L (136-145)
[2017-09-18 01:24] LABS: ALK PHOS 127 U/L (45-117); BILIRUBIN,TOTAL 0.2 mg/dL (0.2-1.0); CREATININE 0.9 mg/dL (0.55-1.02); SGOT/AST 22 U/L (15-37); SGPT/ALT 28 U/L (12-78); TOT PROT 7.2 g/dl (6.4-8.2)
[2017-09-18 01:35] LABS: URINE APPEARANCE CLEAR; URINE BILIRUBIN NEGATIVE (<2.0 mg/dL); URINE COLOR YELLOW; URINE GLUCOSE (UA) NEGATIVE (NEGATIVE); URINE KETONE NEGATIVE (NEGATIVE); URINE LEUK ESTERASE NEGATIVE (NEGATIVE); URINE NITRITE NEGATIVE (NEGATIVE); URINE PROTEIN NEGATIVE (NEGATIVE); URINE UROBILINOGEN NEGATIVE mg/dL (0.2-1.0)
[2017-09-18 01:55] LABS: LIPASE 695 U/L (73-393)
[2017-09-18 03:44] VITALS: BP 139/84; PULSE 101; TEMP 98.6
[2017-09-18] MEDS ORDERED: ACETAMINOPHEN 1000 MG/100 ML VIAL (NON FORMULARY) IVPB ONE (05:13)
[2017-09-18] MEDS ORDERED: ACETAMINOPHEN INJECTION 100 ML IVPB ONE (05:18)
--- NOTE | 2017-09-18 14:21 | EKG ---
Test Reason : Blood Pressure : / mmHG Vent. Rate : 107 BPM Atrial Rate : 107 BPM P-R Int : 168 ms QRS Dur : 072 ms QT Int : 362 ms P-R-T Axes : 061 012 026 degrees QTc Int : 483 ms SINUS TACHYCARDIA OTHERWISE NORMAL ECG WHEN COMPARED WITH ECG OF 21-JUN-2017 13:50, NONSPECIFIC T WAVE ABNORMALITY NO LONGER EVIDENT IN ANTERIOR LEADS Confirmed by KAILYN SYKES MD ([id number]) on 09/18/2017 2:21:19 PM Referred By: Confirmed By:KAILYN SYKES MD
== END 2017-09-18 06:53 | disposition home or self-care (01) ==
LOC: JER 23:12
PROC: 3E0337Z Introduction of Electrolytic and Water Balance Substance into Peripheral Vein, Percutaneous Approach (ICD-10-PCS; principal; 2017-09-17)
PROC: 3E033GC Introduction of Other Therapeutic Substance into Peripheral Vein, Percutaneous Approach (ICD-10-PCS; 2017-09-17)
PROC: 3E033NZ Introduction of Analgesics, Hypnotics, Sedatives into Peripheral Vein, Percutaneous Approach (ICD-10-PCS; 2017-09-17)
DX: R55 Syncope and collapse (principal); R19.7 Diarrhea, unspecified; C20 Malignant neoplasm of rectum
CPT/HCPCS: 36415; 70450-TC; 74019-TC-FY; 80053; 81003; 82550; 83690; 84484; 85025; 93005; 93010; 99283-25; J0131; J7030

== ENCOUNTER 2023-09-14 19:18 | Emergency (ER) | payer MEDICARE ==
[2023-09-14 19:42] VITALS: BP 112/71; PULSE 88; RESP 20; TEMP 98.7; BMI 23.3
== END 2023-09-14 21:58 | disposition home or self-care (01) ==
LOC: JER 19:18
DX: S61.411A Laceration without foreign body of right hand, initial encounter (principal); W20.8XXA Other cause of strike by thrown, projected or falling object, initial encounter
CPT/HCPCS: 73110-TC-RT-FY; 73130-TC-RT-FY; 99283-25